=== PATIENT | male | born 1985 | race Asian ===

== ENCOUNTER → 2016-10-28 | Outpatient (CLI) | payer OTHER ==
[~2016-10-28] MED LIST: GADOBUTROL 7.5 ML VIAL IVP ONE; IOPAMIDOL (ISOVUE 370) 100 ML BTL IV ONE; LIDOCAINE 1% 300 MG/30 ML SDV ONE
== END ==
LOC: FIMAGING 12:39
PROVIDERS: ATTEND Orthopaedic Surgery Hand Surgery
DX: M25.331 Other instability, right wrist (principal)
CPT/HCPCS: A9585; Q9967